=== PATIENT | male | born 1955 | race Caucasian/White ===

== ENCOUNTER 2023-03-30 13:33 | Emergency (ER) | payer MEDICARE, OTHER ==
[2023-03-30 13:49] VITALS: BP 160/74
[2023-03-30] MEDS: methocarbamoL 500 MG TABLET PO STA (14:07)
[2023-03-30] MEDS: oxyCODONE 5 MG TABLET PO STA (14:07)
[2023-03-30] MEDS: LIDOCAINE PATCH 5% TOP STA (14:07)
[2023-03-30] MEDS: DEXAMETHASONE 10 MG/ML VIAL IM STA (14:07)
[2023-03-30] MEDS: KETOROLAC 30 MG/ML VIAL IM STA (14:08)
--- NOTE | 2023-03-30 14:19 | XRAY Report ---
PROCEDURE: Hip w/Pelvis 2-3V LT INDICATIONS: L hip pain/atraumatic TECHNIQUE: AP pelvis with lateral view(s) of the left hip(s). COMPARISON: None. FINDINGS: Bones: No fractures or dislocations. No suspicious bony lesions. Minimal mild bilateral degenerat nikki hip joint space narrowing. Soft tissues: No suspicious soft tissue calcifications or masses. IMPRESSION: No acute bony abnormality. Reviewed by: Grace Foote MD on 03/30/2023 2:18 PM PDT Approved by: Grace Foote MD on 03/30/2023 2:18 PM PDT Station ID: [id number]
--- NOTE | 2023-03-30 14:36 | ED Physician Documentation ---
PD HPI LOWER EXT INJURY - Stated complaint Stated Complaint: LT HIP PX - Chief complaint Chief Complaint: Ext Problem - History obtained from History obtained from: Patient - Additional information Additional information: 67-year-old male presents for evaluation of atraumatic left hip pain that is gradually worsened over the last month. Patient states that pain began while stepping out of a vehicle 1 month ago. He states that he tried to stretch his hip and take anti-inflammatories, however over the last month his pain has worsened and it is now difficult for him to walk due to the pain. He was post to have a primary care appointment today, however he was called earlier this morning and told that his appointment had been canceled and so he came to the ER for evaluation. Denies numbness, weakness, tingling. Review of Systems Constitutional: denies: Fever, Chills Cardiac: denies: Chest pain / pressure, Palpitations, Calf pain Respiratory: denies: Dyspnea, Cough, Wheezing Musculoskeletal: reports: Joint pain, Pain with weight bearing. denies: Neck pain, Back pain, Extremity pain, Joint swelling PD PAST MEDICAL HISTORY - Present Medications Home Medications: Ambulatory Orders Medication Instructions Recorded Confirmed Cyclobenzaprine [Flexeril] 10 mg PO TID PRN #20 tablet 03/30/23 Diclofenac Sodium 1% Gel [Voltaren 2 gm TOP Q4H PRN #50 gm 03/30/23 Gel] dexAMETHasone [Decadron] 8 mg PO DAILY #10 tablet 03/30/23 - Allergies Allergies/Adverse Reactions: Allergies Allergy/AdvReac Type Severity Reaction Status Date / Time codeine Allergy Rash Verified 03/30/23 13:44 PD ED PE NORMAL - Vitals Vital signs reviewed: Yes - General General: Alert and oriented X 3, No acute distress, Well developed/nourished - Neck Neck: Supple, no meningeal sign, No JVD - Cardiac Cardiac: RRR, No murmur - Respiratory Respiratory: No respiratory distress, Clear bilaterally - Abdomen Abdomen: Soft, Non tender, Non distended - Extremities Extremities: No deformity, No tenderness to palpate, No edema, Other (Pain with ROM of L hip) - Neuro Neuro: Alert and oriented X 3, deblocker 2-12 intact, No motor deficit, No sensory deficit, Normal speech - Psych Psych: Normal mood, Normal affect Results - Vitals Vitals: Vital Signs - 24 hr 03/30/23 13:44 Temperature 36.5 C Heart Rate 50 L Respiratory 16 Rate Blood Pressure 160/74 H O2 Saturation 97 Oxygen O2 Source Room air PD Medical Decision Making - ED course Complexity details: reviewed results, re-evaluated patient, considered differential, d/w patient, d/w family ED course: Worsening atraumatic left hip pain. Neurovascularly intact. Suspect musculoskeletal strain, however will obtain x-ray imaging to evaluate for possible osteoarthritis or other bony pathology. Patient was given numerous medications for pain with partial improvement. X-rays were negative for acute findings. Minimal degenerative changes. Again, suspect that there is a component of musculoskeletal strain. Patient was counseled on his x-ray results, I recommended that he continue stretching exercises and anti- inflammatories. Will discharge with steroids and muscle relaxers. Orthopedic follow-up referral provided. Departure - Departure Disposition: 01 Home, Self Care Clinical Impression: Hip strain Condition: Stable Instructions: ED Sprain Hip Follow-Up: Fernando Pak MD [Provider Admit Priv/Credential] - Prescriptions: dexAMETHasone [Decadron] 8 mg PO DAILY #10 tablet Cyclobenzaprine [Flexeril] 10 mg PO TID PRN #20 tablet PRN Reason: Spasms Diclofenac Sodium 1% Gel [Voltaren Gel] 2 gm TOP Q4H PRN #50 gm PRN Reason: Pain 1-4 Comments: Continue to perform stretching exercises. Take the medications prescribed with Tylenol and Motrin. Follow-up with orthopedic surgery. Forms: PCP List Discharge Date/Time: 03/30/23 14:58
== END 2023-03-30 14:58 | disposition home or self-care (01) ==
LOC: ED 13:33
DX: S76.012A Strain of muscle, fascia and tendon of left hip, initial encounter (principal); X58.XXXA Exposure to other specified factors, initial encounter
CPT/HCPCS: 96372; 99283; 99284

== ENCOUNTER 2023-04-06 08:00 | Outpatient (CLI) | payer MEDICARE, OTHER ==
--- NOTE | 2023-04-06 18:10 | XRAY Report ---
PROCEDURE: Hip 2 View LT INDICATIONS: LEFT HIP PAIN TECHNIQUE: An AP view the pelvis and a frog-leg lateral view of the hip were acquired. COMPARISON: None. FINDINGS: Bones: No fractures or dislocations. No suspicious bony lesions. Mild to moderate degenerative ar thritis with superior lateral joint space loss. Soft tissues: No suspicious soft tissue calcifications or masses. 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 No acute bony abnormality. If there remains a high clinical concern for fracture, consider cross-sectional imaging now. If pain persists, conside r repeat x-ray in 10-14 days or cross-sectional imaging. Reviewed by: Kyree Zaragoza MD on 04/06/2023 6:09 PM PDT Approved by: Kyree Zaragoza MD on 04/06/2023 6:09 PM PDT Station ID: [id number]
== END 2023-04-06 23:59 | disposition home or self-care (01) ==
LOC: DI.WOS 08:00
PROVIDERS: ATTEND Orthopaedic Surgery
DX: M16.12 Unilateral primary osteoarthritis, left hip (principal)

== ENCOUNTER 2023-06-19 11:29 | Emergency (ER) | payer MEDICARE, OTHER ==
[2023-06-19 11:47] VITALS: BP 141/82; O2SAT 95
--- NOTE | 2023-06-19 12:10 | XRAY Report ---
PROCEDURE: Finger(s) LT INDICATIONS: Trauma TECHNIQUE: AP hand, 2 views of the fourth finger(s) acquired. COMPARISON: None. FINDINGS: Bones: No acute fractures or dislocations are seen of the fourth finger or elsewhere. There is a rem ote fracture of the distal tip of the third finger. No suspicious bony lesions. Soft tissues: No suspicious soft tissue calcifications or masses. IMPRESSION: No acute fourth finger fracture. Remote third finger fracture. Reviewed by: Tejinder Amezcua MD on 06/19/2023 11:09 AM SOM Approved by: Tejinder Amezcua MD on 06/19/2023 11:09 AM SOM Station ID: [id number]
--- NOTE | 2023-06-19 12:47 | ED Physician Documentation ---
PD HPI UPPER EXT INJURY - Stated complaint Stated Complaint: LT HAND INJ - Chief complaint Chief Complaint: Ext Problem - History obtained from History obtained from: Patient - History of Present Illness Location: Left, Finger (ring finger injury last night when accidentally fell. He says finger angulated at PIP joint and he pulled it straight soon after the injury. Has swelling and pain (he took off his ring before swelling developed). Here for concern of fracture too.) Where injury occurred: Home Timing - onset: Last night Timing - details: Abrupt onset, Still present Worsened by: Moving, Palpating Associated symptoms: Swelling. No: Weakness, Numbness Similar symptoms before: Has not had sx before Review of Systems Skin: denies: Abrasion (s), Laceration (s) Neurologic: denies: Focal weakness, Numbness PD PAST MEDICAL HISTORY - Past Medical History Past Medical History: Yes Cardiovascular: Hypertension, High cholesterol, Other - Past Surgical History Past Surgical History: Yes Ortho: Other - Present Medications Home Medications: Ambulatory Orders Medication Instructions Recorded Confirmed Fluticasone/Salmeterol [Advair 1 each IH DAILY 06/19/23 06/19/23 250-50 Diskus] Rosuvastatin Calcium [Crestor] 40 mg PO DAILY 06/19/23 06/19/23 - Allergies Allergies/Adverse Reactions: Allergies Allergy/AdvReac Type Severity Reaction Status Date / Time codeine Allergy Rash Verified 03/30/23 13:44 - Social History Does the pt smoke?: No Smoking Status: Former smoker PD ED PE NORMAL - Vitals Vital signs reviewed: Yes - General General: Alert and oriented X 3, No acute distress, Well developed/nourished - Derm Derm: Normal color, Warm and dry - Extremities Extremities: Other (left ring finger with swelling and tenderness at PIP joint. LImited ROM due to pain and swellng. He is able to flex and extend at PIP/DIP limitedly so no tendon disruption. Good color and cap refill at fingernail. ) - Neuro Neuro: No motor deficit, No sensory deficit Results - Vitals Vitals: Oxygen O2 Source Room air - Rads (name of study) left fingers Relevant Findings:: Prelim report reviewed (no fractures), EMP independent interpretation of test (no fractures) PD Medical Decision Making - ED course Complexity details: considered differential (by description, he had IP joint dislocation of finger that he reduced just after the injury. Xray without fractures. Will treat with splint. ), d/w patient Reviewed Lab Results: no fractures on xray. Will need to splint and protect for 4 weeks due to ligament disruption with the disclocation. Departure - Departure Disposition: 01 Home, Self Care Clinical Impression: Dislocation, finger, interphalangeal joint Condition: Stable Record reviewed to determine appropriate education?: Yes Instructions: ED Dislocation Finger Redu Follow-Up: Marcello Santoro MD [Primary Care Provider] - [facility] [Provider Group] Comments: Your x-ray is good without any signs of fractures. With the dislocation, there has to be some tearing of the ligaments to hold the joint together. These will take typically 3 to 4 weeks for healing. It does not seem like you have any disruption of the muscle tendons. It it is good to ensure this heals up well. I would recommend follow-up with your primary care or orthopedics in about 1-1/2 to 2 weeks to reevaluate. Meanwhile minimal use of the finger. Gentle range of motion to reduce stiffness is okay. Otherwise have it splinted and protected as the ligaments are healing. Ice elevate and rest to reduce swelling. Tylenol ibuprofen as needed for pains. This will be about a 4-week healing process to be fully strong again. Forms: PCP List Discharge Date/Time: 06/19/23 13:46
== END 2023-06-19 13:46 | disposition home or self-care (01) ==
LOC: ED 11:29
DX: S63.275A Dislocation of unspecified interphalangeal joint of left ring finger, initial encounter (principal); X58.XXXA Exposure to other specified factors, initial encounter; I10 Essential (primary) hypertension
CPT/HCPCS: 99283

== ENCOUNTER 2024-05-15 07:16 | Outpatient (CLI) | payer MEDICARE, OTHER ==
--- NOTE | 2024-05-15 20:43 | Ultrasound Report ---
PROCEDURE: Aorta Screening INDICATIONS: SCREENING FOR CARDIOVASCULAR DISEASE TECHNIQUE: Real time scanning was performed of the aorta and iliac arteries, with image documentatio n. COMPARISON: None. FINDINGS: Aorta: Proximal aortic diameter measures 2.9 cm. Mid-aorta measures 2.3 cm. Distal aortic diameter is 2.1 cm. Iliac arteries: Right common iliac artery measures 1.5 cm. Left common iliac artery measures 1.6 cm . IMPRESSION: No evidence of AAA. Recommended intervals for follow-up imaging of ectatic aortas and abdominal aortic aneurysms, per ACR consensus guidelines: 2.5-2.9 cm: 5 years 3.0-3.4 cm: 3 years 3.5-3.9 cm: 2 years 4.0-4.4 cm: 1 year 4.5-4.9 cm: 6 months + endovascular referral 5.0-5.5 cm: 3-6 months + endovascular referral Reviewed by: Vijay Bear MD on 05/15/2024 12:07 PM PDT Approved by: Vijay Bear MD on 05/15/2024 12:07 PM PDT Station ID: [id number]
== END 2024-05-15 07:17 | disposition home or self-care (01) ==
LOC: DI 07:16
PROVIDERS: ATTEND Student in an Organized Health Care Education/Training Program
DX: Z13.6 Encounter for screening for cardiovascular disorders (principal)